=== PATIENT | female | born 1975 | race Hispanic/Latino ===

== ENCOUNTER → 2021-01-27 | Day surgery (SDC) | payer OTHER ==
[~2021-01-27] MED LIST: FENTANYL CITRATE/PF 100MCG/2 ML INJ ONE; SODIUM CHLORIDE 0.9% 50ML 100 ML ONE; TYLENOL EXTRA500 MG PO
[2021-01-27 11:55] VITALS: BP 131/89
== END | disposition home or self-care (01) ==
LOC: OR 07:50
PROVIDERS: ATTEND Orthopaedic Surgery
DX: S62.625A Displaced fracture of middle phalanx of left ring finger, initial encounter for closed fracture (principal); K58.9 Irritable bowel syndrome, unspecified; F41.9 Anxiety disorder, unspecified; W23.0XXA Caught, crushed, jammed, or pinched between moving objects, initial encounter; Y93.56 Activity, jumping rope; Y92.828 Other wilderness area as the place of occurrence of the external cause; Y99.8 Other external cause status; Z01.812 Encounter for preprocedural laboratory examination; Z20.822 Contact with and (suspected) exposure to COVID-19
CPT/HCPCS: 26735; 81025; C1713; J0690; J3010; U0002

== ENCOUNTER → 2021-02-10 | Outpatient (RCR) | payer OTHER ==
[~2021-02-10] MED LIST changes: -FENTANYL CITRATE/PF 100MCG/2 ML INJ ONE; -SODIUM CHLORIDE 0.9% 50ML 100 ML ONE
== END ==
LOC: OT 07:43
PROVIDERS: ATTEND Orthopaedic Surgery
DX: R60.9 Edema, unspecified (principal)
CPT/HCPCS: 97165; L3913

== ENCOUNTER 2021-02-24 14:51 | Outpatient (RCR) | payer OTHER | END 2021-03-12 | LOC: OT 14:51 | PROVIDERS: ATTEND Orthopaedic Surgery | DX: S62.625D Displaced fracture of middle phalanx of left ring finger, subsequent encounter for fracture with routine healing (principal); M79.642 Pain in left hand; M25.642 Stiffness of left hand, not elsewhere classified ==

== ENCOUNTER 2022-09-25 17:06 | Emergency (ER) | payer OTHER ==
[~2022-09-25] VITALS: Ht 157.5 cm; Wt 99.3 kg
[2022-09-25] MEDS ORDERED: KETOROLAC TROMETHAMINE 30 MG/ML VIAL IV STA (18:24)
[2022-09-25 18:31] LABS: BASOPHILS % 0.4 % (0.0-1.0); EOSINOPHILS # (AUTO) 0.3 (0.0-0.4); EOSINOPHILS % 3.4 % (0.0-6.0); HEMATOCRIT 39.5 % (34.2-44.1); HEMOGLOBIN 12.8 g/dL (12.0-16.0); LYMPHOCYTES # (AUTO) 2.2 (1.0-3.2); LYMPHOCYTES % 23.7 % (18.0-39.1); MEAN CORPUSCULAR HEMOGLOBIN 27.9 pg (28-32); MEAN CORPUSCULAR HGB CONC 32.4 g/dL (31-35); MEAN CORPUSCULAR VOLUME 86.1 fL (81-99); MONOCYTES # (AUTO) 0.7 (0.2-0.8); MONOCYTES % 7.6 % (4.4-11.3); NEUTROPHILS % 64.2 % (38.7-80.0); PLATELET COUNT 337 x10e3/uL (140-360); RED BLOOD COUNT 4.59 x10e6/uL (3.6-5.1); RED CELL DISTRIBUTION WIDTH 13.7 % (11.7-14.4)
[2022-09-25 18:49] LABS: CLARITY,URINE CLEAR (CLEAR); COLOR,URINE YELLOW (YELLOW); LEUKOCYTE ESTERASE ,URINE NEGATIVE (NEGATIVE); NITRITE,URINE NEGATIVE (NEGATIVE); PROTEIN,URINE DIPSTICK NEGATIVE (NEGATIVE)
[2022-09-25 18:50] LABS: KETONES,URINE NEGATIVE (NEGATIVE); URINE UROBILINOGEN 0.2 mg/dL (0.2 - 1)
[2022-09-25 18:51] LABS: ALBUMIN 3.7 g/dL (3.5-5.0); ANION GAP 15.7 mmol/L (8-16); CALCIUM 8.8 mg/dL (8.4-10.2); CREATININE, SERUM 0.78 mg/dL (0.57-1.11); POTASSIUM 3.7 mmol/L (3.5-5.1)
[2022-09-25 19:05] LABS: BACTERIA,URINE FEW /HPF; EPITHELIAL CELLS,URINE FEW /LPF; RBC,URINE 0-5 /HPF (0-5); WBC,URINE (MAN) 0-5 /HPF (0-5)
[2022-09-25 19:13] LABS: CREATINE KINASE 65 IU/L (29-168)
[2022-09-25] MEDS ORDERED: PANTOPRAZOLE SO40 MG PO (20:34)
[2022-09-25] MEDS ORDERED: ONDANSETRON ODT4 MG PO (20:34)
[2022-09-25] MEDS ORDERED: DICYCLOMINE HCL20 MG PO (20:34)
[2022-09-25 21:51] VITALS: BP 142/71
== END 2022-09-25 20:50 | disposition home or self-care (01) ==
LOC: ER 17:17
DX: R06.00 Dyspnea, unspecified (principal); N20.0 Calculus of kidney; E11.9 Type 2 diabetes mellitus without complications; R10.12 Left upper quadrant pain
CPT/HCPCS: 36415; 71045; 74176; 80053; 81001; 82550; 82553; 83690; 84484; 84702; 85025; 85379; 93005; 99284; J1885

== ENCOUNTER 2024-03-08 03:39 | Emergency (ER) | payer OTHER ==
[~2024-03-08] VITALS: Ht 157.5 cm; Wt 93.9 kg
[~2024-03-08 03:39] MED LIST changes: +DICYCLOMINE HCL20 MG PO; +ONDANSETRON ODT4 MG PO; +PANTOPRAZOLE SO40 MG PO
[2024-03-08 04:07] LABS: BASOPHILS % 0.4 % (0.0-1.0); EOSINOPHILS # (AUTO) 0.4 (0.0-0.4); EOSINOPHILS % 3.2 % (0.0-6.0); HEMATOCRIT 42.8 % (34.2-44.1); HEMOGLOBIN 13.5 g/dL (12.0-16.0); LYMPHOCYTES # (AUTO) 2.7 (1.0-3.2); LYMPHOCYTES % 24.4 % (18.0-39.1); MEAN CORPUSCULAR HGB CONC 31.5 g/dL (31-35); MEAN CORPUSCULAR VOLUME 88.8 fL (81-99); MONOCYTES # (AUTO) 0.9 (0.2-0.8); NEUTROPHILS % 63.5 % (38.7-80.0); PLATELET COUNT 344 x10e3/uL (140-360); RED BLOOD COUNT 4.82 x10e6/uL (3.6-5.1); RED CELL DISTRIBUTION WIDTH 13.2 % (11.7-14.4); WHITE BLOOD COUNT 10.98 x10e3/uL (4.8-10.8)
[2024-03-08] MEDS: SODIUM CHLORIDE 0.9% 1000ML 1,000 ML IV STA (04:10)
[2024-03-08 04:32] LABS: ALANINE AMINOTRANSFERASE 15 IU/L (0-55); ALBUMIN 3.8 g/dL (3.5-5.0); ALKALINE PHOSPHATASE 94 IU/L (40-150); ANION GAP 14.6 mmol/L (8-16); BILIRUBIN,TOTAL 0.4 mg/dL (0.2-1.2); BLOOD UREA NITROGEN 16 mg/dL (7-26); BUN/CREATININE RATIO 16 (6-25); CALCIUM 9.3 mg/dL (8.4-10.2); CARBON DIOXIDE 24 mmol/L (22-29); CHLORIDE 102 mmol/L (98-107); CREATINE KINASE 61 IU/L (29-168); CREATININE, SERUM 0.98 mg/dL (0.57-1.11); EST GLOMERULAR FILTRATION RATE 72 ML/MIN (>=60); GLUCOSE 95 mg/dL (74-118); LIPASE 25 U/L (8-78); POTASSIUM 3.6 mmol/L (3.5-5.1); SODIUM 137 mmol/L (136-145); TOTAL PROTEIN 7.5 g/dL (6.5-8.1)
[2024-03-08 04:33] LABS: TROPONIN I < 0.05 ng/mL (0.0-0.40)
[2024-03-08 04:45] LABS: COLOR,URINE YELLOW (YELLOW)
[2024-03-08 04:46] LABS: BILIRUBIN,URINE NEGATIVE (NEGATIVE); CLARITY,URINE CLEAR (CLEAR); GLUCOSE, URINE NEGATIVE (NEGATIVE); KETONES,URINE NEGATIVE (NEGATIVE); LEUKOCYTE ESTERASE ,URINE NEGATIVE (NEGATIVE); NITRITE,URINE NEGATIVE (NEGATIVE); PH,URINE 6 (5 - 7); PROTEIN,URINE DIPSTICK NEGATIVE (NEGATIVE); URINE UROBILINOGEN 0.2 mg/dL (0.2 - 1)
[2024-03-08 04:48] LABS: BACTERIA,URINE MANY /HPF; EPITHELIAL CELLS,URINE MODERATE /LPF; RBC,URINE 0-5 /HPF (0-5); WBC,URINE (MAN) 0-5 /HPF (0-5)
[2024-03-08] MEDS ORDERED: IOPAMIDOL 370 MG/ML 100 ML INFUS..BTL INJ ONE (05:07)
[2024-03-08] MEDS ORDERED: PANTOPRAZOLE SO40 MG PO (05:43)
[2024-03-08 05:59] VITALS: PULSE 96; RESP 18; TEMP 98.3; O2SAT 96
[2024-03-08] MEDS ORDERED: ULTRAM 50MG50 MG PO (19:10)
== END 2024-03-08 05:55 | disposition home or self-care (01) ==
LOC: ER 03:43
DX: R10.10 Upper abdominal pain, unspecified (principal); N20.0 Calculus of kidney; D25.9 Leiomyoma of uterus, unspecified
CPT/HCPCS: 36415; 74177; 80053; 81001; 81025; 82550; 83690; 84484; 85025; 93005; 99283; J7030; Q9967